=== PATIENT | female | born 1980 | race Caucasian/White ===

== ENCOUNTER 2018-06-17 15:09 | Emergency (ER) | payer OTHER ==
[~2018-06-17] VITALS: Ht 167.6 cm; Wt 68.0 kg
[2018-06-17] MEDS ORDERED: BACTRIM DS TAB1 EACH PO (15:35)
[2018-06-17 16:16] LABS: URINE BILIRUBIN NEGATIVE (Negative); URINE BLOOD NEGATIVE (Negative); URINE CLARITY CLEAR; URINE COLOR YELLOW; URINE GLUCOSE-RANDOM* NEGATIVE (Negative); URINE KETONES NEGATIVE (Negative); URINE LEUKOCYTES-REFLEX NEGATIVE (Negative); URINE NITRITE-REFLEX NEGATIVE (Negative); URINE PROTEIN (DIPSTICK) NEGATIVE (Negative); URINE SPECIFIC GRAVITY <= 1.005 (1.005-1.035); URINE UROBILINOGEN 0.2 E.U./dl (0.2-1.0)
[2018-06-17 16:21] LABS: HEMATOCRIT 36.7 % (37.0-47.0); HEMOGLOBIN 12.9 gm/dL (12.0-15.0); MCH 29.8 pg (26.0-34.0); MCHC 35.2 g/dL (28.0-37.0); MCV 84.7 fL (80.0-100.0); PLATELET COUNT 171 thou/uL (150-400); RBC 4.34 mil/uL (4.20-5.00); RDW 11.4 % (10.5-14.5); WBC 3.4 thou/uL (4.0-11.0)
[2018-06-17 16:29] LABS: CALCIUM 9.6 mg/dL (8.5-10.1); CREATININE 0.6 mg/dL (0.6-1.0); POTASSIUM 3.6 mmol/L (3.5-5.1)
[2018-06-17 17:14] LABS: ABSOLUTE NEUTROPHILS 1.8 thou/uL (1.4-8.2)
[2018-06-17] MEDS ORDERED: METOPROLOL TART25 MG PO (17:51)
[2018-06-17 18:12] VITALS: BP 114/73
== END 2018-06-17 18:12 | disposition home or self-care (01) ==
LOC: ER 15:09
PROVIDERS: Emergency Medicine
DX: E05.90 Thyrotoxicosis, unspecified without thyrotoxic crisis or storm (principal); M54.5 Low back pain; R10.9 Unspecified abdominal pain; J02.9 Acute pharyngitis, unspecified; R51 Headache; R42 Dizziness and giddiness